=== PATIENT | male | born 1965 | race Two or more races ===

== ENCOUNTER 2024-06-12 01:21 | Emergency (ER) | payer MEDICAID, OTHER ==
[~2024-06-12] VITALS: Ht 160 cm; Wt 82.7 kg
[2024-06-12 01:57] VITALS: BP 165/93; PULSE 87; RESP 18; O2SAT 96
== END 2024-06-12 04:46 | disposition left against medical advice (07) ==
LOC: ER 01:21
DX: M54.50 Low back pain, unspecified (principal); M79.604 Pain in right leg; Z53.21 Procedure and treatment not carried out due to patient leaving prior to being seen by health care provider